=== PATIENT | male | born 1945 | race Caucasian/White ===

== ENCOUNTER 2019-03-05 14:26 | Observation (INO) | payer BC, MEDICARE, OTHER ==
[~2019-03-05] VITALS: Ht 185.4 cm; Wt 78.9 kg
--- NOTE | 2019-03-05 14:29 | NUR ---
74 YEAR OLD MALE, BROUGHT IN BY EMS FOR C/O CHEST PAIN. CHEST PAIN HAS BEEN INTERMIT AND STARTED EARLY THIS MORNING. EMS REPORTS THAT PT HAS "NO PRIOR MEDICAL HX, NO MEDICATIONS, AND NO MED ALLERGIES. EMS 12 LEADS NORMAL. EMS GAVE ASA AND NITRO. VS STABLE.
[2019-03-05 15:08] LABS: ALANINE AMINOTRANSFERASE 20 U/L (12-78); ALBUMIN 3.7 g/dL (3.4-5.0); ANION GAP 11 mmol/L (5-15); CHLORIDE 111 mmol/L (98-107); CREATININE 1.22 mg/dL (0.7-1.3)
[2019-03-05 15:10] LABS: BASOPHILS # (AUTO) 0.03 x10^3/uL (0-0.1); BASOPHILS % (AUTO) 0 % (0-1); EOSINOPHILS # (AUTO) 0.16 x10^3/uL (0-0.4); EOSINOPHILS % (AUTO) 2 % (1-7); LYMPHOCYTES % (AUTO) 24 % (22-44); MD NO; MEAN CORPUSCULAR HEMOGLOBIN 33.7 pg (27.5-34.5); MEAN CORPUSCULAR HGB CONC 32.9 g/dL (33.2-36.2); MEAN CORPUSCULAR VOLUME 102.2 fL (81-97); MEAN PLATELET VOLUME 8.5 fL (7.4-10.4); MONOCYTES % (AUTO) 8 % (2-9); NEUTROPHILS # (AUTO) 4.66 x10^3/uL (1.8-6.8); NEUTROPHILS % (AUTO) 65 % (42-75); PLATELET COUNT 242 x10^3/uL (130-400); RED BLOOD COUNT 4.07 x10^6/uL (4.38-5.82); RED CELL DISTRIBUTION WIDTH 15.1 % (9.4-14.8)
[2019-03-05 15:12] LABS: ALKALINE PHOSPHATASE 103 U/L (45-117); BILIRUBIN,TOTAL 0.3 mg/dL (0.2-1.0); TOTAL PROTEIN 6.7 g/dL (6.4-8.2); TROPONIN I < 0.015 ng/mL (0.000-0.045)
[2019-03-05] MEDS ORDERED: FENTANYL PF 100 MCG/2ML ONE (15:37)
--- NOTE | 2019-03-05 15:41 | NUR ---
PT WITH SUDDEN INCREASE OF PAIN. PT WITH INCREASE RR, SR PER MONITOR. REPEAT EKG DONE. BP 94/71. DISCUSSED WITH DR RILEY. ORDERS RECEIVED, PT MEDICATED AT ORDERED. PT AND FAMILY UPDATED ON POC. IE: CTA ORDERED. Addendum: 03/05/19 at 1655 by KVNG RN ATTEMPTING TO ASK PT PAIN LEVEL, FAMILY STATES "HE IS AT A 20" CONT TO TRY TO ASK PT, FAMILY "HE WILL TELL YOU IT IS A TWO. HE DOESNT KNOW. HE DOESNT KNOW WHERE HIS PAIN IS. YOU KEEP TALKING ABOUT HIS HEART, ITS HIS STOMACH" PT POINTS AND RUBS LOWER LEFT PECTORIAL FROM LEFT TO RIGHT" ATTEMPT TO EDUCATE FAMILY THAT PAIN LEVEL IS WHAT PT REPORTS AND THAT I CAN OBSERVE PT WINCING AND RUBBING CHEST. THAT I WOULD BE TREATING PAIN ORDERED. THAT BP IS LOWER THAN MD WOULD LIKE WHEN GIVING NARCOTIC PAIN MEDS. FAMILY IGNORED RN AND TALK. ENC PT TO ALSO USE RELAXATION BREATHING.
[2019-03-05] MEDS ORDERED: FENTANYL PF 100 MCG/2ML IV ONE (16:00)
--- NOTE | 2019-03-05 16:09 | NUR ---
PT REPORTS NO RELIEF WITH PAIN MEDS, NOW WITH MORALES AND NAUSEA. REPORTS NAUSEA "NEW. SR PER MONITOR. AWAITING TRANSPORT TO CT. FAMILY AT BEDSIDE.
[2019-03-05] MEDS ORDERED: ONDANSETRON 2MG/ML, 2ML ONE (16:13)
[2019-03-05] MEDS: SODIUM CHLORIDE 0.9% 1,000 ML IV SCH ×3 (16:17→21:35)
--- NOTE | 2019-03-05 16:18 | NUR ---
PT BECOMES AGITATED WITH PAIN. "I WANT TO SEE A DOCTOR, THE PAIN IS GETTING WORSE" DISCUSSED WITH PT AND FAMILY THAT MD IS AWARE OF PAIN ACROSS CHEST AND HEADACHE. THAT HIS BLOOD PRESSURE IS ON THE LOW SIDE. PT GIVEN NS AT 200MLS/HR. ZOFRAN FOR NAUSEA. AGAIN UPDATED THAT CT ORDERED R/T TO CONCERN OF POTENTIAL DISEASE PROCESS. ENC PT TO USE RELAXATION BREATHING. PT CONT TO BE SR PER MONITOR.
--- NOTE | 2019-03-05 16:21 | NUR ---
PT SISTER STATES TO PT "JUST CALM DOWN, BECAUSE NO ONE IS PAYING ATTENTION, DONT DO SOMETHING STUPID" PT WITH INCREASED AGITATION WITH PAIN. NEW ORDER RECEIVED FOR TORDAL.
[2019-03-05] MEDS ORDERED: KETOROLAC 30 MG/1 ML ONE (16:22)
--- NOTE | 2019-03-05 16:25 | NUR ---
PT TO CT VIA SHAUN
[2019-03-05] MEDS ORDERED: KETOROLAC 60 MG/2 ML IVPush ONE (16:30)
[2019-03-05] MEDS ORDERED: ONDANSETRON 2MG/ML, 2ML IVPush ONE (16:30)
--- NOTE | 2019-03-05 16:45 | NUR ---
PT RETURN TO ROOM FROM LOBBY. PT SHAKES HEAD "YES" WHEN ASKED IF PAIN IS BETTER"
--- NOTE | 2019-03-05 17:16 | NUR ---
DR RILEY AT BEDSIDE TO EVAL PT
--- NOTE | 2019-03-05 17:29 | NUR ---
PT SMILING. PT STATES "I FEEL BETTER, I BURP AND FART AND FEEL BETTER" PT AWARE OF TO BE INPATIENT ADMIT. IV INFUSING WITHOUT REDNESS SWELLING. CONT SR PER MONITOR. NO NEEDS EXPRESSED AT THIS TIME.
[2019-03-05] MEDS ORDERED: NITROGLYCERIN 0.4 MG BOTTLE (25 TABS) SL PRN (18:00)
[2019-03-05] MEDS ORDERED: ONDANSETRON ODT 4 MG PO PRN (18:00)
[2019-03-05] MEDS ORDERED: ACETAMINOPHEN 325 MG TABLET PO PRN (18:00)
[2019-03-05] MEDS ORDERED: ONDANSETRON 2MG/ML, 2ML IVPush PRN (18:00)
[2019-03-05] MEDS ORDERED: MORPHINE SULFATE 4 MG/ML, 1ML IVPush PRN (18:00)
[2019-03-05] MEDS ORDERED: ENOXAPARIN 40 MG/0.4 ML SQ SCH (18:00)
[2019-03-05 18:18] LABS: TROPONIN I < 0.015 ng/mL (0.000-0.045)
[2019-03-05 19:08] VITALS: BP 148/68
[2019-03-05 19:09] VITALS: BP 148/68
[2019-03-05 22:18] VITALS: BP 135/68
[2019-03-05] MEDS: KETOROLAC 30 MG/1 ML IVPush PRN (22:51)
[2019-03-05] MEDS ORDERED: KETOROLAC 30 MG/1 ML IVPush PRN (23:00)
[2019-03-05 23:47] LABS: TROPONIN I < 0.015 ng/mL (0.000-0.045)
[2019-03-06 00:18] VITALS: BP 113/61
[2019-03-06 05:15] LABS: CHOL/HDL RATIO 4.6; LDL/HDL RATIO 2.2 (0.5-3.0)
[2019-03-06] MEDS ORDERED: ASPIRIN 325 MG TABLET EC PO SCH (06:00)
[2019-03-06 08:00] VITALS: BP 141/81
[2019-03-06] MEDS: KETOROLAC 30 MG/1 ML IVPush PRN (08:01)
[2019-03-06 08:14] VITALS: BP 140/81
[2019-03-06] MEDS ORDERED: REGADENOSON 0.4 MG/5 ML SYRINGE ONE (08:40)
[2019-03-06] MEDS: SODIUM CHLORIDE 0.9% 1,000 ML IV SCH (13:09)
[2019-03-06] MEDS ORDERED: ASPI-650 PO (13:37)
[2019-03-06] MEDS ORDERED: OMEP-110 PO (13:37)
[2019-03-06] MEDS ORDERED: EZET10TA18 PO (13:38)
== END 2019-03-06 15:43 | disposition left against medical advice (07) ==
LOC: ED 15:02 → INTOOBSV 17:18 → EDIP 17:18 → 5SO 19:08
PROVIDERS: ADMIT Internal Medicine; ATTEND Internal Medicine
DX: R07.89 Other chest pain (principal); I95.9 Hypotension, unspecified; E78.1 Pure hyperglyceridemia; R42 Dizziness and giddiness; J44.9 Chronic obstructive pulmonary disease, unspecified; F17.210 Nicotine dependence, cigarettes, uncomplicated
CPT/HCPCS: 36415; 71045; 71275; 78452; 80053; 80061; 83690; 83880; 84484; 85025; 93005; 93017; 96361; 96372; 96374; 96375; 96376; 99285; A9502; C9898; G0378; J1650; J1885; J2405; J2785; J3010; J7030; 96366

== ENCOUNTER 2019-08-03 15:21 | Emergency (ER) | payer MEDICARE ==
[~2019-08-03] VITALS: Ht 188 cm; Wt 77.5 kg
[~2019-08-03 15:21] MED LIST: ASPI-650 PO; EZET10TA70 PO; OMEP-110 PO
--- NOTE | 2019-08-03 15:29 | NUR ---
LATE ENTRY: PT BIBA FROM HOME C/O GEN ABD PAIN WITH NVD SINCE 1430 TODAY; PT RECEIVED IV ZOFRAN 4MG WITH SUPPL O2/NRB PLACED RELAY CHECKER; IMMEDIATELY AFTER RECEIVING REPORT FROM [facility], PT BEGAN VOMITING UPON STAFF-ASSISTED TRANSFER TO [facility] & WAS UNRESPONSIVE, DR ROBLERO IMMEDIATELY NOTIFIED OF PT STATUS, CODE BLUE REQUESTED WITH CPR INITIATED. PT DAUGHTER (YAIR) ARRIVED WITH [facility] & REMAINED OUTSIDE OF ROOM.
[2019-08-03] MEDS ORDERED: MORPHINE SULFATE 4 MG/ML, 1ML IVPush PRN (15:30)
[2019-08-03] MEDS ORDERED: SODIUM CHLORIDE 0.9% 1,000ML IVBOLUS ONE (15:30)
[2019-08-03] MEDS ORDERED: SODIUM CHLORIDE FLUSH 10ML SYR IVF ONE (15:30)
[2019-08-03] MEDS ORDERED: LORazepam 2 MG/ML, 1ML IVPush ONE (15:30)
[2019-08-03] MEDS ORDERED: ONDANSETRON 2MG/ML, 2ML IVPush ONE (15:30)
--- NOTE | 2019-08-03 15:31 | NUR ---
bass mechanism maker: vivi arce called MD Renu York & ER team at bedside
[2019-08-03] MEDS ORDERED: MIDAZOLAM 1 MG/ML, 5ML ONE (16:00)
[2019-08-03] MEDS ORDERED: SODIUM BICARB 8.4%, 50ML SYRINGE ONE (16:00)
[2019-08-03] MEDS ORDERED: EPINEPHRINE SYRINGE 0.1 MG/ML, 10ML ONE (16:00)
[2019-08-03] MEDS ORDERED: AMIODARONE 50 MG/ML, 3ML ONE (16:00)
[2019-08-03] MEDS ORDERED: PLEASE ENTER HEIGHT AND WEIGHT MC SCH (16:00)
[2019-08-03] MEDS ORDERED: CALCIUM CHLORIDE 10%, 10ML SYR ONE (16:00)
--- NOTE | 2019-08-03 16:21 | NUR ---
1531 CODE STARTED, PLEASE SEE CODE SHEET. PT AT 1559. CALLED [employer] AT
--- NOTE | 2019-08-03 16:52 | NUR ---
CALLED INDIA AT [facility] EXAMINER SPOKE WITH INDIA, PER INDIA GASTON
--- NOTE | 2019-08-03 17:09 | NUR ---
BELONGINGS GLASSES AND HEARING AID WITH FAMILY
--- NOTE | 2019-08-03 17:12 | NUR ---
SPOKE WITH NELLI PINEDA AT [facility], UNABLE TO GIVE REFERRAL NUMBER DUE TO COMPUTERS DOWN
--- NOTE | 2019-08-03 19:57 | NUR ---
JOHNATHAN WITH [employer] CALLED FOR ADDITIONAL INFORMATION ABOUT PT. JOHNATHAN GAVE [employer]OR REFERRAL NUMBER [id number]
== END 2019-08-03 18:22 | disposition expired ==
LOC: ED 18:02
DX: I46.9 Cardiac arrest, cause unspecified (principal); R04.89 Hemorrhage from other sites in respiratory passages
CPT/HCPCS: 31500; 71045; 80047; 82962; 99291; J0282; J2250